=== PATIENT | female | born 1990 | race Caucasian/White ===

== ENCOUNTER 2018-04-04 13:03 | Emergency (ER) | END 2018-04-04 15:04 | disposition home or self-care (01) | DX: O47.1 False labor at or after 37 completed weeks of gestation (principal); Z3A.38 38 weeks gestation of pregnancy ==

== ENCOUNTER 2018-04-05 00:06 | Emergency (ER) | payer OTHER ==
[~2018-04-05 00:06] MED LIST: IBUP600 PO; PERI8.6T PO; PREN0.01 PO
--- NOTE | 2018-04-05 00:39 | PD ---
HPI Chief Complaint ctx Date Seen: April 05, 2018 Time Seen: 00:38 Travel History International Travel<30 Days: No Contact w/Intl Traveler<30Days: No Known Affected Area: No History of Present Illness HPI Pt is a 27y/o @ 38.wks. She has PNC with Dr. Aguiar. She presents this evening with c/o worsening ctx since prior triage visit 10hrs ago. No LOF, VB. +FM. Weeks Gestation: 38 Para: 1 : 2 History Past Medical History Medical History: Denies Significant Hx Obstetric History Obstetric History 1. 2. current Past Surgical History Narrative Surgical -- ear tubes -- wisdom teeth extraction Family History Family History: Negative Social History Alcohol Use: No Tobacco Use: No Substance Abuse: No Allergies-Medications (Allergen,Severity, Reaction): Coded Allergies: No Known Allergies (Unverified , 09/11/15) Home Meds Active Scripts Sennosides-Docusate Sodium (Ary-Colace 8.6-50 mg) 1 Tab Tab, 2 TAB PO Q12H Y for CONSTIPATION, #20 TAB 0 Refills Prov:La Bales 09/14/15 Ibuprofen (Motrin 600 Mg Tab) 600 Mg Tab, 600 MG PO Q6H Y for CRAMPING, #30 TAB 0 Refills Prov:La Bales 09/14/15 Reported Medications Multivit/Min/Fol Ac/Iron/Pren ( Vit ( Plus)) Tab, 1 TAB PO DAILY, TAB 09/12/15 Review of Systems Except as stated in HPI: all other systems reviewed are Neg Physical Exam Narrative General: well developed, well nourished, no acute distress HEENT: normocephalic atraumatic, extraocular movements intact, neck supple Abdomen: soft, gravid, nontender, nondistended Uterus: fundus term Extremities: full range of motion Skin: normal coloration, no rashes, no suspicious skin lesions noted Neurologic: cranial nerves 2-12 grossly intact, normal muscle tone, normal gait Psychiatric: normal mood and affect, appropriate FHTs: 130s, +accels, no decels, moderate variability, reactive Roosevelt: irregular ctx Cvx: 4/60/-2 Data Data Vital Signs Reviewed: Yes Orders Orders Vital Signs (Adult) .ON ADMISSION (04/05/18 00:34) ^ Labor Status (04/05/18 00:34) ^ Non Stress Test (04/05/18 00:34) Ed Discharge Order (04/05/18 00:34) MDM Plan 27y/o @ 38.2wks with ctx. -- FHTs cat 1 -- toco irregular -- cvx unchanged from earlier today Dispo: d/c home with precautions Diagnosis Diagnosis: Primary Impression: 38 weeks gestation of Additional Impression: Uterine contractions Disposition: 01 DISCHARGE HOME Condition: Stable Patient Instructions: General Instructions, Having Your Baby: The Labor Process (GEN), Movement (ED) Additional Instructions: DRINK PLENTY OF WATER DURING THE DAY, RETURN IF LEAKING FLUID, VAGINAL BLEEDING , DECREASE IN BABY MOVING OR STRONG CONTRACTIONS. FOLLOW UP WITH OB DR IN AM AND KEEP ALL UPCOMING APPTS. Departure Forms: Tests/Procedures Petros Brennan MD April 05, 2018 00:39
== END 2018-04-05 00:44 | disposition home or self-care (01) ==
LOC: HOBED 00:06
DX: O47.1 False labor at or after 37 completed weeks of gestation (principal); Z3A.38 38 weeks gestation of pregnancy
CPT/HCPCS: 99284

== ENCOUNTER 2018-04-10 09:06 | Inpatient (IN) | payer OTHER ==
[~2018-04-10] VITALS: Ht 165.1 cm; Wt 61.2 kg
[2018-04-10] MEDS ORDERED: MINERAL OIL 10 ML VIAL TOPICAL PRN (09:30)
[2018-04-10] MEDS ORDERED: OXYTOCIN 30 UNITS-500ML PREMIX 500 ML IV ONE (09:30)
[2018-04-10] MEDS ORDERED: SODIUM CHLORID 0.9% 500 ML INJ 500 ML IV PRN (09:30)
[2018-04-10] MEDS ORDERED: OXYTOCIN 30 UNITS-500ML PREMIX 500 ML IV PRN (09:30)
[2018-04-10] MEDS ORDERED: LIDOCAINE HCL 1% 50 ML VIAL INFIL PRN (09:30)
[2018-04-10] MEDS ORDERED: LIDOCAINE HCL 1% 50 ML VIAL I-DERMAL PRN (09:30)
[2018-04-10] MEDS ORDERED: CITRIC ACID-SODIUM CITRATE LIQ 30 ML UDC PO SCH (09:30)
[2018-04-10] MEDS ORDERED: LACTATED RINGER'S 1000 ML INJ 1,000 ML IV PRN (09:30)
[2018-04-10] MEDS ORDERED: SODIUM CHLOR 0.9% 1000 ML INJ 1,000 ML IV PRN (09:50)
[2018-04-10] MEDS ORDERED: PENICILLIN G POTASSIUM INJ 5,000,000 UNITS in SODIUM CHLORIDE 0.9% INJ 100 ML IV ONE (10:00)
[2018-04-10] MEDS: LACTATED RINGER'S 1000 ML INJ 1,000 ML IV SCH ×2 (10:54→16:38)
[2018-04-10 11:11] LABS: AUTOMATED NEUTROPHIL # 4.9 TH/MM3 (1.8-7.7); BASOPHIL # 0.1 TH/MM3 (0-0.2); BASOPHIL % 0.8 % (0.0-2.0); EOSINOPHIL # 0.1 TH/MM3 (0-0.4); EOSINOPHIL % 0.9 % (0.0-4.0); HEMATOCRIT 29.5 % (35.0-46.0); HEMOGLOBIN 9.6 GM/DL (11.6-15.3); LYMPH % 27.1 % (9.0-44.0); LYMPHOCYTE # 2.1 TH/MM3 (1.0-4.8); MEAN CELL VOLUME 78.1 FL (80.0-100.0); MEAN CORPUSCULAR HEMOGLOBIN 25.5 PG (27.0-34.0); MEAN CORPUSCULAR HGB CONC 32.6 % (32.0-36.0); MEAN PLATELET VOLUME 9.8 FL (7.0-11.0); MONO % 7.9 % (0.0-8.0); MONOCYTE # 0.6 TH/MM3 (0-0.9); NEUT % 63.3 % (16.0-70.0); PLATELET COUNT 163 TH/MM3 (150-450); RED BLOOD COUNT 3.78 MIL/MM3 (4.00-5.30); RED CELL DISTRIBUTION WIDTH 14.5 % (11.6-17.2); WHITE BLOOD COUNT 7.8 TH/MM3 (4.0-11.0)
[2018-04-10 11:18] LABS: BILIRUBIN, URINE NEG (NEG); BLOOD, URINE NEG (NEG); GLUCOSE,URINE NEG (NEG); KETONE, URINE NEG (NEG); NITRITE,URINE NEG (NEG); SQUAMOUS EPITHELIAL CELL URINE 3 /hpf (0-5); URINE COLOR LIGHT-YELLOW (YELLW/STRAW); URINE LEUKOCYTE ESTERASE TRACE (NEG)
--- NOTE | 2018-04-10 12:11 | HHI.PR ---
RESEARCH SPEC Note Note to bedside to evaluate patient, tiffany well q2-3 min; SVE 5/70/-2, AROM'd clear fluid Haley Orona MD April 10, 2018 12:11
[2018-04-10] MEDS ORDERED: fentaNYL 2MCG-BUPIV 0.125% INJ 150 ML EPIDURAL ONE (13:34)
[2018-04-10] MEDS ORDERED: PENICILLIN G POTASSIUM INJ 2,500,000 UNITS in SODIUM CHLORIDE 0.9% INJ 100 ML IV SCH (14:00)
[2018-04-10] MEDS ORDERED: ePHEDrine/NS 25 MG/5 ML SYRINGE IV PUSH PRN (15:45)
[2018-04-10] MEDS ORDERED: DO NOT ADMINISTER ANTICOAGULANTS PRN (15:45)
[2018-04-10] MEDS ORDERED: fentaNYL 2MCG-BUPIV 0.125% 150 ML EPIDURAL PRN (15:45)
[2018-04-10] MEDS ORDERED: fentaNYL 2MCG-BUPIV 0.125% 100 ML EPIDURAL PRN (15:45)
[2018-04-10] MEDS ORDERED: NO SYSTEM NARCOTICS PRN (15:45)
[2018-04-10] MEDS ORDERED: MEASLES, MUMPS, RUBELLA VACCINE 0.5 ML VIAL SQ ONE (16:00)
[2018-04-10] MEDS ORDERED: DIPHTH/TETANUS/ACEL PERTUSSIS (BOOSTER) 0.5 ML VIAL/PFS IM ONE (16:00)
[2018-04-10] MEDS ORDERED: WITCH HAZEL 50%/GLYCERIN 12.5% 40 PAD JAR TOPICAL PRN (16:15)
[2018-04-10] MEDS ORDERED: ACETAMINOPHEN 325 MG TAB PO PRN (16:15)
[2018-04-10] MEDS ORDERED: BENZOCAINE 20% TOPICAL SPRAY 60 ML CAN TOPICAL PRN (16:15)
[2018-04-10] MEDS ORDERED: OXYTOCIN 30 UNITS-500ML PREMIX 500 ML IV SCH (16:15)
[2018-04-10] MEDS ORDERED: oxyCODONE/ACETAMINOPHEN 5 MG/325 MG TAB PO PRN ×2 (16:15)
[2018-04-10] MEDS ORDERED: ALUMINUM/MAGNESIUM/SIMETH 30 ML CUP PO PRN (16:15)
[2018-04-10] MEDS ORDERED: SODIUM CHLORIDE 0.9% FLUSH 10 ML FLUSH IV FLUSH PRN (16:15)
[2018-04-10] MEDS ORDERED: ZOLPIDEM TARTRATE 5 MG TAB PO PRN (16:15)
[2018-04-10] MEDS ORDERED: ONDANSETRON ODT 4 MG TAB PO PRN (16:15)
[2018-04-10] MEDS ORDERED: METHYLERGONOVINE MALEATE 0.2 MG/ML VIAL ONE ×2 (16:18→16:19)
--- NOTE | 2018-04-10 16:59 | PD.OB.DELI ---
Gest age assessed date: April 10, 2018 Gest age assessed time: 09:00 Pt started active labor?: No Medical induction of labor?: Yes Medical induction start date: April 10, 2018 Medical induction start time: 09:00 Artificial rupture of membrane: Yes Artificial ROM date: April 10, 2018 Artifical ROM time: 11:45 Anesthesia: Epidural Episiotomy: Midline Vaginal Delivery: Normal Presentation: Occiput anterior Nuchal Cord: None Delayed cord clamping (45 sec): Yes Shoulder Dystocia: Jannet maneuver done Infant: Male Delivery date: April 10, 2018 Delivery time: 16:00 One Minute : 8 Five Minute : 9 Placenta: Spontaneous delivery Laceration: Episiotomy Repair: Vicryl running Estimated blood loss: 350cc Additional Information methergine given Javier Aguiar MD April 10, 2018 16:59
[2018-04-10] MEDS: SODIUM CHLORIDE 0.9% FLUSH 10 ML FLUSH IV FLUSH SCH (20:25)
[2018-04-10] MEDS: DOCUSATE SODIUM 50 MG/SENNA 8.6 MG TAB PO PRN (20:26)
[2018-04-10] MEDS: IBUPROFEN 800 MG TAB PO PRN (20:32)
[2018-04-10 20:39] VITALS: BP 124/76; PULSE 61; RESP 17; TEMP 98.3
[2018-04-11] MEDS: IBUPROFEN 800 MG TAB PO PRN ×3 (04:19→21:39)
--- NOTE | 2018-04-11 07:54 | HHI.OB ---
Subjective Post Day: 1 Remarks pt doing well, no complaints Objective Vitals/I&O Vital Signs Date Time Temp Pulse Resp B/P (MAP) Pulse Ox O2 Delivery O2 Flow Rate FiO2 04/10/18 20:39 98.3 61 17 124/76 (92) Objective Remarks GENERAL: Well-nourished, well-developed patient. CARDIOVASCULAR: Regular rate and rhythm without murmurs, gallops, or rubs. RESPIRATORY: Breath sounds equal bilaterally. No accessory muscle use. ABDOMEN/GI: Abdomen soft, non-tender. Fundus: Firm, non-tender at umbilicus. GENITOURINARY: Light to moderate bleeding. EXTREMITIES: No cyanosis or edema, non-tender, without signs of DVT. Medications and IVs Current Medications Medications (Trade) Dose Ordered Sig/Hansa Route Start Time Stop Time Status Last Admin Lactated Ringer's 1,000 ml @ 3,000 mls/hr Q20M PRN IV 04/10/18 09:30 (NS Flush) 2 ml BID IV FLUSH 04/10/18 21:00 04/10/18 20:25 (NS Flush) 2 ml UNSCH PRN IV FLUSH 04/10/18 16:15 (Tylenol) 650 mg Q4H PRN PO 04/10/18 16:15 (Motrin) 800 mg Q8H PRN PO 04/10/18 16:15 04/11/18 04:19 (Percocet 5-325 Mg) 1 tab Q4H PRN PO 04/10/18 16:15 (Percocet 5-325 Mg) 2 tab Q4H PRN PO 04/10/18 16:15 (Americaine 20% Top Spr) 1 spray Q4H PRN TOPICAL 04/10/18 16:15 04/10/18 20:25 (Tucks Pads) 1 applic QID PRN TOPICAL 04/10/18 16:15 04/10/18 20:25 (Ary-Colace) 2 tab Q12H PRN PO 04/10/18 16:15 04/10/18 20:26 (Ambien) 5 mg HS PRN PO 04/10/18 16:15 (Mag-Al Plus Susp Liq) 15 ml Q8H PRN PO 04/10/18 16:15 (Zofran Odt) 4 mg Q6H PRN PO 04/10/18 16:15 Assessment/Plan Problem List: (1) (normal spontaneous vaginal delivery) ICD Codes: O80 - Encounter for full-term uncomplicated delivery Status: Acute Assessment and Plan PPD#1 routine PP care Discharge Planning routine Attending Attestation pt seen by Pita Ruiz MD April 11, 2018 07:54
[2018-04-11 20:30] VITALS: BP 113/71; PULSE 76; RESP 17; TEMP 98.2
[2018-04-11] MEDS: DOCUSATE SODIUM 50 MG/SENNA 8.6 MG TAB PO PRN (21:39)
[2018-04-12] MEDS: IBUPROFEN 800 MG TAB PO PRN (08:41)
--- NOTE | 2018-04-12 08:45 | HHI.OB ---
Subjective Post Day: 2 Remarks doing well with no issues circ in office with Cosme Objective Vitals/I&O Vital Signs Date Time Temp Pulse Resp B/P (MAP) Pulse Ox O2 Delivery O2 Flow Rate FiO2 04/11/18 20:30 98.2 76 17 113/71 (85) Objective Remarks GENERAL: Well-nourished, well-developed patient. CARDIOVASCULAR: Regular rate and rhythm without murmurs, gallops, or rubs. RESPIRATORY: Breath sounds equal bilaterally. No accessory muscle use. ABDOMEN/GI: Abdomen soft, non-tender. Fundus: Firm, non-tender at umbilicus. GENITOURINARY: Light to moderate bleeding. EXTREMITIES: No cyanosis or edema, non-tender, without signs of DVT. Medications and IVs Current Medications Medications (Trade) Dose Ordered Sig/Hansa Route Start Time Stop Time Status Last Admin Lactated Ringer's 1,000 ml @ 3,000 mls/hr Q20M PRN IV 04/10/18 09:30 (NS Flush) 2 ml BID IV FLUSH 04/10/18 21:00 04/10/18 20:25 (NS Flush) 2 ml UNSCH PRN IV FLUSH 04/10/18 16:15 (Tylenol) 650 mg Q4H PRN PO 04/10/18 16:15 (Motrin) 800 mg Q8H PRN PO 04/10/18 16:15 04/12/18 08:41 (Percocet 5-325 Mg) 1 tab Q4H PRN PO 04/10/18 16:15 (Percocet 5-325 Mg) 2 tab Q4H PRN PO 04/10/18 16:15 (Americaine 20% Top Spr) 1 spray Q4H PRN TOPICAL 04/10/18 16:15 04/10/18 20:25 (Tucks Pads) 1 applic QID PRN TOPICAL 04/10/18 16:15 04/10/18 20:25 (Ary-Colace) 2 tab Q12H PRN PO 04/10/18 16:15 04/11/18 21:39 (Ambien) 5 mg HS PRN PO 04/10/18 16:15 (Mag-Al Plus Susp Liq) 15 ml Q8H PRN PO 04/10/18 16:15 (Zofran Odt) 4 mg Q6H PRN PO 04/10/18 16:15 Assessment/Plan Problem List: (1) (normal spontaneous vaginal delivery) ICD Codes: O80 - Encounter for full-term uncomplicated delivery Status: Acute Assessment and Plan PPD#1 routine PP care 04/12/18 Discharge home RTO 6 weeks unless any issues (has two others) reviewed PPD, DVT risk, BP and other routine things to watch for Discharge Planning routine Marianna Ro MD April 12, 2018 08:44
[2018-04-12] MEDS ORDERED: IBUP1TAB7 PO (08:46)
--- NOTE | 2018-04-12 08:46 | HHI.DCPOC ---
Discharge Care Plan Report Symptoms to Your Doctor -Temperature above 100.5 degrees -Redness, of incision or excessive or foul smelling drainage -Unusual pain or calf pain -Increased vaginal bleeding -Painful or difficulty urinating -Feelings of extreme sadness or anxiety after 2 weeks Goals to Promote Your Health * To prevent worsening of your condition and complications * To maintain your health at the optimal level Directions to Meet Your Goals Take your medications as prescribed Follow your dietary instruction Follow activity as directed Ensure plenty of rest for recovery Drink fluids for hydration Keep your appointments as scheduled Take your immunizations and boosters as scheduled If your symptoms worsen call your PCP, if no PCP go to Urgent Care Center or Emergency Room Smoking is Dangerous to Your Health. Avoid second hand smoke Call the 24-hour crisis hotline for domestic abuse at Marianna Ro MD April 12, 2018 08:46
[2018-04-12] MEDS: SODIUM CHLORIDE 0.9% FLUSH 10 ML FLUSH IV FLUSH SCH (09:08)
== END 2018-04-12 13:56 | disposition home or self-care (01) | DRG 775 ==
LOC: H2EA 09:06 → H1EA 18:20
PROVIDERS: ADMIT Obstetrics & Gynecology; ATTEND Obstetrics & Gynecology
PROC: 10E0XZZ Delivery of Products of Conception, External Approach (ICD-10-PCS; principal; 2018-04-10)
PROC: 0W8NXZZ Division of Female Perineum, External Approach (ICD-10-PCS; 2018-04-10)
PROC: 10907ZC Drainage of Amniotic Fluid, Therapeutic from Products of Conception, Via Natural or Artificial Opening (ICD-10-PCS; 2018-04-10)
PROC: 3E0R3BZ Introduction of Anesthetic Agent into Spinal Canal, Percutaneous Approach (ICD-10-PCS; 2018-04-10)
PROC: 00HU33Z Insertion of Infusion Device into Spinal Canal, Percutaneous Approach (ICD-10-PCS; 2018-04-10)
DX: O66.0 Obstructed labor due to shoulder dystocia (principal); Z37.0 Single live birth; Z3A.39 39 weeks gestation of pregnancy
CPT/HCPCS: 59025; 80307; 81001; 85025; 86900; 86901; J2210; J2540; J2590; J3010; J7120